=== PATIENT | female | born 1960 ===

== ENCOUNTER 2017-06-03 08:45 | Outpatient (CLI) | payer OTHER ==
--- NOTE | 2017-06-03 12:07 | Ultrasound Report ---
ULTRASOUND GUIDED NEEDLE CORE BIOPSY LEFT BREAST WITH CLIP PLACEMENT: 06/03/17 CLINICAL: Mass at 12 o'clock 6 cm from nipple. COMPARISON :Outside MRI from January 2017 FINDINGS: The procedure was explained to the patient and informed consent was obtained. Ultrasound demonstrated a complex cyst at 12 o'clock 6 cm from the nipple which appears to correlate with the previously described lesion. It measures approximately 1.5 x 1.4 x 0.9 cm. Has a lobular contour and at least one septation. Focal nodular thickening in the wall of the cyst.. I marked the breast with a felt tip marker and a time out was called. The skin was prepped with Betadine and anesthetized with 1% lidocaine. Needle core biopsy was performed through a tiny dermatotomy using ultrasound guidance, 2% lidocaine with epinephrine for deep anesthesia and a 14-gauge Achieve biopsy device. 3 cores were obtained and placed in formalin. The complex cyst showed complete collapse with the biopsy. A clip was deployed within the lesion The patient tolerated the procedure well and there were no apparent complications. Hemostasis was achieved with minimal pressure and a sterile dressing was applied. A two view mammogram demonstrated concordant placement of the clip and no residual mammographic density. She left the department in good condition and was given instructions for wound care and followup. IMPRESSION: Uncomplicated ultrasound guided needle core biopsy with clip placement left breast.
== END 2017-06-03 08:46 | disposition home or self-care (01) ==
LOC: US 08:45
PROVIDERS: ATTEND Internal Medicine
DX: N60.02 Solitary cyst of left breast (principal); N63.20 Unspecified lump in the left breast, unspecified quadrant; Z98.82 Breast implant status
CPT/HCPCS: 19083; 76642; 88305; A4648; G0206